=== PATIENT | male | born 1950 | race Caucasian/White ===

== ENCOUNTER → 2019-01-29 | Outpatient (CLI) | payer MEDICARE ==
[~2019-01-29] MED LIST: CALC-178 PO; GLUC-12 PO; LEVO50TA5 PO; NAPR220C4 PO; OXYC1TAB22 PO
--- NOTE | 2019-01-29 16:00 | KCIC ---
CT study of the thoracic spine without contrast Clinical indications: Patient fell in October 2018. Persistent thoracic back pain. TECHNIQUE: Noncontrast helical CT scanning of the thoracic spine was performed. Multiple 2-D reconstructions were generated. PQRS compliance Statement One or more of the following individualized dose reduction techniques were utilized for this study: 1. Automated exposure control 2. Adjustment of the mA and/or kV according to patient size 3. Use of iterative reconstruction technique FINDINGS: No compression fracture or discitis or lytic process is evident. A corduroy appearance of multiple vertebral bodies are seen consistent with benign hemangiomas. Mild degenerative endplate spurring is seen throughout the thoracic spine. No focal disc protrusion or significant spinal canal stenosis is evident. Small right-sided pleural effusion is seen. IMPRESSION: No acute compression fracture. Mild degenerative thoracic spondylosis is seen. Small right-sided pleural effusion. Electronically signed by: Amari Mcrae MD (01/29/2019 3:57 PM) [facility] [id number]
== END | disposition home or self-care (01) ==
LOC: KCIC CT 08:48
PROVIDERS: ATTEND Family Medicine
DX: M47.814 Spondylosis without myelopathy or radiculopathy, thoracic region (principal); J90 Pleural effusion, not elsewhere classified; M46.04 Spinal enthesopathy, thoracic region
CPT/HCPCS: 72128

== ENCOUNTER → 2019-04-15 | Outpatient (CLI) | payer MEDICARE ==
[2019-03-06 14:00] VITALS: BP 125/66
[~2019-04-15] MED LIST changes: +CONTRAST GIVEN. MC PRN; +IOHEXOL 240 MG/ML 50ML VIAL. PO ONE; +IOHEXOL 300 MG/ML 100ML VIAL. IV ONE
--- NOTE | 2019-04-15 13:13 | RAD ---
PQRS Compliance Statement: One or more of the following individualized dose reduction techniques were utilized for this examination: 1. Automated exposure control 2. Adjustment of the mA and/or kV according to patient size 3. Use of iterative reconstruction technique CT neck, chest, abdomen and pelvis with contrast 04/15/2019 10:59 AM INDICATION: Lymphoma COMPARISON: CT neck, chest, abdomen and pelvis March 04, 2019 TECHNIQUE: Multiple axial CT images of the abdomen and pelvis were obtained after the intravenous administration of 75 mL Omnipaque 300. Coronal and sagittal reformats are provided. FINDINGS: NECK: No suspicious enhancement is identified involving the visualized portions of the posterior fossa and brain parenchyma. Mild mucosal thickening of the left maxillary sinus is identified. No pathologically enlarged cervical lymph nodes are identified. Pharynx and larynx appear intact. Floor of mouth, oral cavity and neck soft tissues are normal in appearance. Carotid spaces are intact. Mild cervical spondylosis. Findings are stable from the prior CT from March 04, 2019. CHEST: Interval resolution of right supraclavicular lymphadenopathy as well as right axillary lymphadenopathy. Right chest wall infusion port catheter is identified with the distal tip terminating in the superior right atrium. Heart size is within normal limits. Near-complete resolution of right pleural-based nodularity with pleural thickening measuring maximally 8 mm at the T10 vertebral level previously measuring 23 mm at the same level. No new or enlarging solid noncalcified pulmonary nodules. ABDOMEN/PELVIS: Liver is normal in appearance. Decreased size of the spleen, previously measuring 9.9 cm in craniocaudal dimension and currently measuring 8.9 cm. There is persistent heterogeneous enhancement of the spleen. Findings may be secondary to phase of contrast imaging. Adrenal glands are normal. Pancreas and gallbladder are normal. Abdominal aorta is stable appearance of mild ectasia of the infrarenal abdominal aorta measuring 2.1 cm. Dense calcified atheromatous plaque is present. Previously seen masslike enlargement of the right erector spinae musculature has resolved with minimal residual soft tissue attenuation insinuating along the normal fat planes at the level of the abdominal hiatus. For example, previously seen masslike enlargement of the right lumbar musculature measured 8 x 7 cm in transaxial dimensions and currently measures 6.8 x 5.6 cm and measured in similar dimensions. No new or enlarging retroperitoneal lymphadenopathy. Previously seen left periaortic lymph node measured 10 mm by short axis and currently measures 5 mm (series 4, image 30). The kidneys enhance symmetrically. There is no suspicious renal mass. There is no hydronephrosis. There are no suspected calculi within the kidneys, ureters or urinary bladder. No evidence for bowel obstruction or inflammation. Urinary bladder is within normal limits given degree of distention. No suspicious pelvic mass. No pathologic fractures or suspicious osseous lesion. IMPRESSION: Findings are compatible with treatment response with near complete resolution of thoracic and abdominal lymphadenopathy. Specifically, dominant right erector spinae mass is nearly completely resolved. There may be minimal pleural thickening in the medial right lower lobe at the T10 vertebral level. Spleen has decreased in size. Electronically signed by: Clarisa Carcamo MD (04/15/2019 1:10 PM) [id number]
== END | disposition home or self-care (01) ==
LOC: CT 09:49
PROVIDERS: ATTEND Internal Medicine Hematology & Oncology
DX: C83.33 Diffuse large B-cell lymphoma, intra-abdominal lymph nodes (principal); I77.811 Abdominal aortic ectasia; I70.0 Atherosclerosis of aorta; N32.89 Other specified disorders of bladder; M47.812 Spondylosis without myelopathy or radiculopathy, cervical region; M53.86 Other specified dorsopathies, lumbar region; D73.89 Other diseases of spleen
CPT/HCPCS: 70491; 71260; 74177; Q9966

== ENCOUNTER → 2019-07-11 | Outpatient (CLI) | payer MEDICARE ==
[2019-03-06 14:00] VITALS: BP 125/66
[~2019-07-11] MED LIST changes: -CONTRAST GIVEN. MC PRN; +GLUC1CAP41 PO; -IOHEXOL 240 MG/ML 50ML VIAL. PO ONE; -IOHEXOL 300 MG/ML 100ML VIAL. IV ONE
--- NOTE | 2019-07-11 19:09 | RAD ---
Examination: PET W CT SKULL TO MIDTHIGH History: Lymphoma Comparison/Correlation: 04/15/2019 CT neck chest abdomen and pelvis with contrast Findings: 15.14 mCi F-18 FDG was intravenously administered for PET/CT exam from the skull base to the proximal thighs. Serum glucose of 104 mg/dL noted at the time of injection. Hepatic reference uptake of up to 2.2 SUV max is noted. Uptake of radiotracer involving the neck is normal. Right central venous infusion port catheter is present. Uptake of radiotracer involving the region of posterior right basilar pleural thickening is mild with SUV max of 1.2 there are no enlarged thoracic lymph nodes. No abnormal uptake radiotracer involving the chest. Uptake of radiotracer within the abdomen and pelvis is unremarkable. No enlarged abdominal or pelvic lymph nodes. Prostatomegaly is present with transverse diameter 5.1 cm. Irregular contour of the prostate gland is noted. Impression: No abnormal uptake to suggest lymphadenopathy or suspicious mass. No enlarged lymph nodes identified. Mild prostatomegaly. Prostate gland has an irregular contour. Correlate clinically in determining further evaluation.
== END | disposition home or self-care (01) ==
LOC: PETSC 07:24
PROVIDERS: ATTEND Internal Medicine Hematology & Oncology
DX: C83.33 Diffuse large B-cell lymphoma, intra-abdominal lymph nodes (principal)
CPT/HCPCS: 78815; A9552

== ENCOUNTER → 2019-11-01 | Outpatient (CLI) | payer MEDICARE ==
[2019-03-06 14:00] VITALS: BP 125/66
--- NOTE | 2019-11-01 15:28 | RAD ---
Examination: PET W CT SKULL TO MIDTHIGH History: B-cell lymphoma restaging Comparison/Correlation: 07/11/2019 PET/CT exam, 04/15/2019 CT neck chest abdomen and pelvis with contrast FINDINGS: Net dose 13.32 mCi F-18 FDG was administered intravenously for purposes of whole body PET/CT exam. Blood glucose level at the time of radiotracer administration was 96 mg/dL. Hepatic reference uptake is SUV max of 1.8 . Uptake of radiotracer involving the visualized head and neck is unremarkable. Right-sided infusion port catheter tip terminates in the superior cava atrial junction. Right costophrenic sulcus atelectasis noted. No suspicious uptake involving the thorax identified. Uptake of radiotracer within the abdomen and pelvis is unremarkable. No radiopaque collecting system calculi. IMPRESSION: No abnormal uptake of radiotracer to suggest active metastatic disease or lymphadenopathy. Mild right posterior basilar atelectasis. PQRS Compliance Statement: One or more of the following individualized dose reduction techniques were utilized for this examination: 1. Automated exposure control 2. Adjustment of the mA and/or kV according to patient size 3. Use of iterative reconstruction technique Electronically signed by: Tim Padilla MD (11/01/2019 3:25 PM) [facility]
== END | disposition home or self-care (01) ==
LOC: PETSC 07:54
PROVIDERS: ATTEND Internal Medicine Hematology & Oncology
DX: C83.33 Diffuse large B-cell lymphoma, intra-abdominal lymph nodes (principal); J98.11 Atelectasis
CPT/HCPCS: 78815; A9552

== ENCOUNTER 2019-11-12 08:19 | Outpatient (CLI) | payer MEDICARE ==
[~2019-11-12] VITALS: Ht 193 cm; Wt 83.9 kg
[2019-11-12 08:46] VITALS: BP 139/71
[2019-11-12 08:55] LABS: CALCIUM 9.4 mg/dL (8.5-10.1); CREATININE 0.9 mg/dL (0.7-1.3); GFR 83.9; POTASSIUM 4.6 mmol/L (3.5-5.1)
[2019-11-12 08:58] LABS: BASO % 1 % (0-3); EOS # 0.3 x10^3/uL (0.0-0.7); EOS % 6 % (0-3); HEMATOCRIT 40.6 % (39.0-53.0); HEMOGLOBIN 13.5 g/dL (13.0-17.5); LYMPH # 0.4 x10^3/uL (1.0-4.8); LYMPH % 7 % (24-48); MEAN CORPUSCULAR HEMOGLOBIN 32 pg (25-35); MEAN CORPUSCULAR HGB CONC 33 g/dL (31-37); MEAN CORPUSCULAR VOLUME 97 fL (79-100); MONO # 0.7 x10^3/uL (0.0-1.1); MONO % 12 % (0-9); NEUT # 4.2 x10^3/uL (1.8-7.7); NEUT % 75 % (31-73); PLATELET COUNT 240 x10^3/uL (140-400); RED BLOOD COUNT 4.19 x10^6/uL (4.30-5.70); RED CELL DISTRIBUTION WIDTH 14.2 % (11.5-14.5); WHITE BLOOD COUNT 5.7 x10^3/uL (4.0-11.0)
[2019-11-12 09:01] LABS: ALBUMIN 3.6 g/dL (3.4-5.0); ALBUMIN/GLOBULIN RATIO 0.9 (1.0-1.7); TOTAL BILIRUBIN 0.5 mg/dL (0.2-1.0); TOTAL PROTEIN 7.4 g/dL (6.4-8.2)
[2019-11-12] MEDS ORDERED: DIPH25CA58 PO (09:01)
[2019-11-12] MEDS ORDERED: ACET500T33 PO (09:01)
[2019-11-12 09:07] LABS: PROTHROMBIN TIME PATIENT 13.4 SEC (11.7-14.0)
[2019-11-12] MEDS ORDERED: LIDOCAINE 1%/EPI 1:100,000 20 ML VIAL. ONE (09:24)
--- NOTE | 2019-11-12 10:25 | NUR ---
Pt to IR for portacath removal after completion on treatment. Pt tolerated procedure without difficulty, VSS. Dressing to R chest dry and intact. MOE RN
[2019-11-12 10:30] VITALS: BP 118/75
[2019-11-12] MEDS ORDERED: LIDOCAINE 1%/EPI 1:100,000 20 ML VIAL. INJ ONE (10:30)
[2019-11-12] MEDS ORDERED: diphenhydrAMINE 50 MG/ML VIAL ONE (10:32)
[2019-11-12 10:45] VITALS: BP 114/75
--- NOTE | 2019-11-12 11:05 | RAD ---
11/12/2019 9:00 AM Removal of right internal jugular PowerPort Indication: No longer requires chemotherapy access Discussion: The risks and benefits of the procedure were discussed the patient. Informed consent was obtained. A timeout procedure was performed. The right chest overlying the reservoir was prepped and draped using maximum sterile barrier technique. All elements of maximal sterile barrier technique including the use of a cap, mask, sterile gown, sterile gloves, large sterile sheet, appropriate hand hygiene, and 2% chlorhexidine for cutaneous antisepsis (or acceptable alternative antiseptic per current guidelines) were followed for this procedure. 1% lidocaine was administered for local anesthesia. Small incision was made overlying the reservoir. The port and catheter removed intact. This was confirmed with fluoroscopy. Was closed with 4-0 Vicryl suture. Dermabond was applied. Sterile dressings were applied. No immediate complications were identified. Total fluoroscopy time: 0.1 min Dose: 0.2 Gycm2 Impression: Removal of right internal jugular PowerPort
[2019-11-12 11:08] VITALS: BP 119/77
[2019-11-12 11:25] VITALS: BP 104/77
[2019-11-12 11:42] VITALS: BP 110/80
--- NOTE | 2019-11-12 11:47 | NUR ---
Discharge Note: EDNA C[facility] Discharge instructions and discharge home medications reviewed with Patient and a copy given. All questions have been answered and understanding verbalized. The following instructions and handouts were given: incision care Discontinued lines and drains: right ac iv dc'd intact. Patient discharged to home with family via car.
== END 2019-11-12 11:45 | disposition home or self-care (01) ==
LOC: INTRAD 08:19
PROVIDERS: ATTEND Internal Medicine Hematology & Oncology
DX: Z45.2 Encounter for adjustment and management of vascular access device (principal); C83.33 Diffuse large B-cell lymphoma, intra-abdominal lymph nodes; Z79.899 Other long term (current) drug therapy
CPT/HCPCS: 36415; 36590; 77001; 80053; 85025; 85610; J3490

== ENCOUNTER → 2020-05-15 | Outpatient (CLI) | payer MEDICARE ==
[~2020-05-15] MED LIST changes: +ACET500T33 PO; +DIPH25CA58 PO
--- NOTE | 2020-05-15 16:31 | RAD ---
EXAM: PET W CT SKULL TO MIDTHIGH EXAM DATE: 05/15/2020 INDICATION: Reason: LYMPHOMA restaging RADIOPHARMACEUTICAL: 15.9 mCi of F-18 Fluorodeoxyglucose (FDG) I.V. via the left antecubital fossa. TECHNIQUE: Patient weight: 175 pounds. Following at least four-hour fasting, the patient's blood glucose was 104 mg/dl. Approximately 1 hour after administration of FDG, overlapping emission scanning was performed from the orbital meatal line through the pelvis. A low-dose CT was performed for attenuation correction purposes and anatomic localization. Fused images of PET and CT were reviewed. Any standardized uptake values (SUV) reported are maximum values within a volume region of interest, expressed in gm/ml. COMPARISON: PET CT of 11/01/2019 FINDINGS: PET: There is high background FDG uptake on this examination compared with the prior study. Mediastinal background uptake is 2.4. Hepatic background uptake is 2.9 (compared with the reported uptake of 1.8 on the prior study). In this context, uptake in a 6 mm short axis subcarinal lymph node to max SUV of 3.6 is noted. Otherwise no abnormal uptake is appreciated. CT: In the head and neck, chest abdomen and pelvis, no enlarged lymph nodes (including the questionably hypermetabolic subcarinal lymph node) is apparent. The liver and spleen are not enlarged and apart from high background physiologic activity, no abnormal uptake is identified besides uptake in the atelectatic changes in the right lower lobe lung, similar to prior. Mild subpleural cystic change is present in the upper lobes predominantly, suggesting mild early paraseptal pattern emphysematous change. No acute or aggressive appearing osseous lesions appreciated in the musculoskeletal system. IMPRESSION: A 6 mm subcarinal lymph node shows mild uptake to max is a 3.6 in the setting of diffuse high background activity. This is of doubtful clinical significance. Attention on surveillance imaging is recommended. Electronically signed by: Katelyn Mobley MD (05/15/2020 4:28 PM) [id number]
== END ==
LOC: PETSC 09:36
PROVIDERS: ATTEND Internal Medicine Hematology & Oncology
DX: C83.33 Diffuse large B-cell lymphoma, intra-abdominal lymph nodes (principal)
CPT/HCPCS: 78815; A9552

== ENCOUNTER → 2020-08-14 | Outpatient (CLI) | payer MEDICARE ==
--- NOTE | 2020-08-14 14:46 | RAD ---
EXAM: Dual modality PET-CT Scan DATE: 08/14/2020 RADIOPHARMACEUTICAL: 16.7 mCi F-18 fluorodeoxyglucose (FDG) IV. CLINICAL HISTORY: Lymphoma restaging. COMPARISON: 05/15/2020 TECHNIQUE: Approximately 45 minutes after tracer administration, routine, attenuation-corrected Positron Emission Tomography (PET) images were obtained from the level of the base of the skull through the level of the mid thighs. Tomographic reconstructions are reviewed in coronal, transaxial and sagittal planes. Non-contrast CT imaging was performed for attenuation correction and localization purposes only. These images do not constitute a diagnostic-quality CT examination and were not used to diagnose disease independently of the PET images. The blood glucose level was 103 mg/dL at the time of FDG administration. *One or more of the following individualized dose reduction techniques were utilized for this examination: 1. Automated exposure control. 2. Adjustment of the mA and/or kV according to patient size. 3. Use of iterative reconstruction technique. FINDINGS: There is no significant increased tracer tracer activity to suggest malignancy. The previously demonstrated subcarinal lymph node with an SUV of 3.6 stable in size and demonstrates an SUV of 2.7. There is mild increased radiotracer activity within SUV of 2.6 within posterior right basilar atelectasis or interstitial infiltrate. There is expected physiologic greater tracer activity. The CT portion of the exam demonstrates stable nonspecific mediastinal and hilar lymph nodes. The previously demonstrated subcarinal lymph node is stable in size. The heart is normal in size. The aorta is normal in caliber. There is aortic atherosclerosis. There is calcification of the mitral valve annulus. There is no infiltrate, pleural effusion or pneumothorax. There are chronic interstitial changes. There is right greater than left posterior dependent and basilar atelectasis or interstitial infiltrate. There is a 4 mm nodule within the right middle lobe. This is new compared to the prior exam. There are few calcified granulomas. No hepatic lesion is seen. The gallbladder, pancreas, spleen, adrenal glands and kidneys are unremarkable. No abnormally thickened or dilated loop of bowel is seen. There is colonic diverticulosis. The urinary bladder is unremarkable. The aorta is normal in caliber. There are nonspecific retroperitoneal and mesenteric lymph nodes. These are stable and not pathologically enlarged. There is a small left maxillary sinus mucous retention cyst. The skull base and visualized portions the brain are unremarkable. There is no new neck lymphadenopathy. There are degenerative changes throughout the spine. There is no suspicious osseous lesion. There are several osseous hemangiomas and bone islands. IMPRESSION: 1. No convincing abnormal radiotracer activity to suggest malignancy. 2. Mild radiotracer activity within SUV of 2.6 associated with right basilar atelectasis or interstitial infiltrate. 3. No new suspicious lymphadenopathy. 4. 4 mm right middle lobe pulmonary nodule. This is new compared to the prior study. This is too small to characterize with PET. Attention at the time of follow-up is recommended. 5. Please refer to the above report for additional incidental findings regarding the CT portion of the exam. Electronically signed by: Deirdre Davenport MD (08/14/2020 2:43 PM) [id number]
== END ==
LOC: PETSC 08:05
PROVIDERS: ATTEND Internal Medicine Hematology & Oncology
DX: C83.33 Diffuse large B-cell lymphoma, intra-abdominal lymph nodes (principal); K57.30 Diverticulosis of large intestine without perforation or abscess without bleeding; J84.10 Pulmonary fibrosis, unspecified; J98.4 Other disorders of lung; I70.0 Atherosclerosis of aorta; D47.2 Monoclonal gammopathy; R91.1 Solitary pulmonary nodule
CPT/HCPCS: 78815; A9552

== ENCOUNTER → 2020-12-10 | Outpatient (CLI) | payer MEDICARE ==
--- NOTE | 2020-12-10 16:59 | KCIC ---
PROCEDURE: XR HAND_RIGHT 3 VIEWS STUDY DATE: 12/10/2020 CLINICAL INDICATION / HISTORY: Reason: Rt hand pain since September 2020. Pain 3rd-5th digits. / Spl. Instructions: / History: . TECHNIQUE: PA, lateral and oblique views of the right hand. COMPARISON: None FINDINGS: No fracture or dislocation is identified. The bone density is diffusely demineralized. The joint spaces are mildly narrowed diffusely, most conspicuously at the third MCP joint, the first IP j oint and the fourth PIP joint. There are no erosions to suggest an inflammatory arthropathy. The soft tissues show mild soft tissue swelling in the third and fourth digits. No abnormal soft tissue gas o r radiopaque foreign body.. IMPRESSION: Typical degenerative changes in the right hand soft tissue swelling in the third and four th digits. No abnormal soft tissue gas or radiopaque foreign body. Electronically signed by: Katelyn Mobley MD (12/10/2020 4:57 PM) [id number]
== END ==
LOC: KCIC 10:37
PROVIDERS: ATTEND Nurse Practitioner Gerontology
DX: S69.91XD Unspecified injury of right wrist, hand and finger(s), subsequent encounter (principal); M19.041 Primary osteoarthritis, right hand; X58.XXXD Exposure to other specified factors, subsequent encounter
CPT/HCPCS: 73130